=== PATIENT | male | born 1970 | race Caucasian/White ===

== ENCOUNTER 2019-05-01 13:38 | Observation (INO) | payer MEDICAID ==
[~2019-05-01] VITALS: Ht 175.3 cm; Wt 102.3 kg
--- NOTE | 2019-05-01 14:59 | NUR ---
PT MOTHER COMES TO DESK TO REPORT PT WAS RELEASED 2 DAYS AGO FROM REHAB FOR [facility]COHOLISM. MOTHER STATES PT IS "EXTREMELY SUICIDAL". MOTHER FURTHER REPORTS PT TOLD HER HE DOES NOT CARE IF HE LIVES OR DIES. PT ANSWERS SCREENING QUESTIONS ALL NEGATIVE HOWEVER, PT IS DIFFICULT TO KEEP AWAKE DURING TRIAGE. WILL REASK QUESTIONS WHEN PT IS MORE SOBER.
[2019-05-01 15:06] LABS: BASOPHILS 0.3 % (0-2); EOSINOPHILS 0.3 % (0-7); HEMATOCRIT 41.5 % (42.0-54.0); HEMOGLOBIN 15.1 g/dL (13.5-17.5); IMMATURE GRANULOCYTES 0.4 % (0-5); LYMPHOCYTES 32.3 % (15-50); MCH 30.6 pg (26.0-34.0); MCHC 36.4 g/dL (31.0-37.0); MCV 84.2 fL (80.0-100.0); MEAN PLATELET VOLUME 9.2 fL (7.4-10.4); MONOCYTES 4.7 % (2-11); PLATELET COUNT 190 10x3/uL (130-400); RBC 4.93 10x6/uL (4.20-6.10); RDW 13.6 % (11.5-14.5); WBC 7.4 10x3/uL (4.8-10.8)
--- NOTE | 2019-05-01 15:26 | NUR ---
GISSEL COBIAN [phone]. STATES PT MAY BE ELIGIBLE TO GO TO [facility] TO HELP WITH ETOH DETOX. THIS RN UPDATED DR. SAM, RECEIVED VERBAL ORDER TO HAVE PT SCREENED AFTER BLOOD ALCOHOL IS UNDER 100. WILL CONTINUE TO MONITOR.
[2019-05-01 15:34] LABS: ALKALINE PHOSPHATASE 58 U/L (46-116); ALT (SGPT) 45 U/L (10-68); BILIRUBIN - TOTAL 0.46 mg/dL (0.2-1.3); CALC OSMOLALITY 285 mosm/kg (275-300); CALCIUM 8.7 mg/dL (8.5-10.1); CARBON DIOXIDE 28.1 mmol/L (21.0-32.0); CHLORIDE - SERUM 105 mmol/L (98-107); CREATININE - SERUM 0.9 mg/dL (0.6-1.3); GLUCOSE 99 mg/dL (74-106); POTASSIUM - SERUM 3.9 mmol/L (3.5-5.1); PROTEIN - SERUM 7.3 g/dL (6.4-8.2); SODIUM 143 mmol/L (136-145); UREA NITROGEN 15 mg/dL (7-18); eGFR NON AFRICAN AMERICAN > 90 mL/min (90-120)
--- NOTE | 2019-05-01 17:55 | NUR ---
PT IS MORE ALERT AT THIS TIME. STATES WE ARE ABLE TO SPEAK WITH HIS MOTHER ABOUT ALL OF HIS MEDICAL INFORMATION. PT ALSO STATES HE IS SUICIDAL BECAUSE HE IS "SICK OF THIS SHIT I JUST WANT IT TO END". WHEN ASKED IF PATIENT HAS A PLAN PT RESPONDS "HELL YEAH, JUST GET OUT OF MY WAY". THIS RN STATED TO PT THAT SHE DIDN'T UNDERSTAND THE PLAN ET PT STATES HE WILL JUMP OFF OF A BUILDING. PT IS VERY AGGRESSIVE WITH HIS SPEECH. PT CHANGED INTO PAPER GOWN, BELONGINGS SECURED AT NURSING STATION, 1:1 SITTER AT BEDSIDE.
[2019-05-01 18:17] LABS: APPEARANCE CLEAR (CLEAR); COLOR STRAW (YELLOW); GLUCOSE NEGATIVE (NEGATIVE); KETONE NEGATIVE (NEGATIVE); NITRITE NEGATIVE (NEGATIVE); PROTEIN NEGATIVE (NEGATIVE); SPECIFIC GRAVITY 1.015 (1.005-1.020); UROBILINOGEN NORMAL (NORMAL)
[2019-05-01 18:18] LABS: BILIRUBIN NEGATIVE (NEGATIVE)
[2019-05-01 18:23] LABS: UDS - AMPHET NEGATIVE QUAL (NEGATIVE); UDS - BARB NEGATIVE QUAL (NEGATIVE); UDS - BENZO NEGATIVE QUAL (NEGATIVE); UDS - COCAINE NEGATIVE QUAL (NEGATIVE); UDS - OPIATE NEGATIVE QUAL (NEGATIVE); UDS - PCP NEGATIVE QUAL (NEGATIVE); UDS - THC NEGATIVE QUAL (NEGATIVE)
--- NOTE | 2019-05-01 18:45 | NUR ---
PT WILL BE PROVIDED A PSYCH SCREEN WHEN HIS BLOOD ALCOHOL IS UNDER 100.
--- NOTE | 2019-05-01 21:22 | NUR ---
Due to the suicide assessment and conferring with Dr. Hwang, the patient does not require 1:1 observation at this time.
--- NOTE | 2019-05-01 21:45 | NUR ---
PSYCH ASSESSMENT DONE STATES THAT PT DOES NOT NEED SITTER. WEBFOCUS DEVELOPER INFORMED.
[2019-05-01] MEDS ORDERED: COZAAR100 MG PO (22:16)
[2019-05-01 22:26] VITALS: BP 141/91; Ht 175.3 cm; Wt 102.3 kg
--- NOTE | 2019-05-01 22:30 | NUR ---
PT REFUSING TELE AT THIS TIME STATING "I DONT NEED THAT SHIT" PT IS ALSO VERY SEXUALLY INAPPROPRIATE WITH THE NURSING STAFF STATING "DAMN GIRL, YOU HAVE A ROCKING BOOTY" INFORMED PT THAT STATEMENTS SUCH THOSE WILL NOT BE TOLERATED AND ARE NOT APPROPRIATE. PT VERBALIZES UNDERSTANDING.
[2019-05-02 04:00] VITALS: BP 119/86
--- NOTE | 2019-05-02 04:36 | NUR ---
I have reviewed this patient and I concur with the Shift Assessment completed by the Licensed Practical Nurse today this shift.
[2019-05-02 05:16] LABS: BASOPHILS 0.3 % (0-2); EOSINOPHILS 0.4 % (0-7); HEMATOCRIT 40.5 % (42.0-54.0); HEMOGLOBIN 14.6 g/dL (13.5-17.5); IMMATURE GRANULOCYTES 0.3 % (0-5); LYMPHOCYTES 21.7 % (15-50); MCV 83.3 fL (80.0-100.0); MEAN PLATELET VOLUME 9.6 fL (7.4-10.4); MONOCYTES 7.6 % (2-11); NEUTROPHILS 69.7 % (40-80); PLATELET COUNT 213 10x3/uL (130-400); RBC 4.86 10x6/uL (4.20-6.10); RDW 13.1 % (11.5-14.5)
[2019-05-02 05:23] LABS: WBC 10.5 10x3/uL (4.8-10.8)
[2019-05-02 05:28] LABS: ALBUMIN 3.7 g/dL (3.4-5.0); ALKALINE PHOSPHATASE 55 U/L (46-116); ALT (SGPT) 40 U/L (10-68); BILIRUBIN - TOTAL 0.74 mg/dL (0.2-1.3); CALC OSMOLALITY 276 mosm/kg (275-300); CALCIUM 8.2 mg/dL (8.5-10.1); CARBON DIOXIDE 25.8 mmol/L (21.0-32.0); CHLORIDE - SERUM 102 mmol/L (98-107); CREATININE - SERUM 0.9 mg/dL (0.6-1.3); GLUCOSE 87 mg/dL (74-106); POTASSIUM - SERUM 3.8 mmol/L (3.5-5.1); PROTEIN - SERUM 6.8 g/dL (6.4-8.2); SODIUM 138 mmol/L (136-145); UREA NITROGEN 18 mg/dL (7-18); eGFR NON AFRICAN AMERICAN > 90 mL/min (90-120)
--- NOTE | 2019-05-02 07:17 | NUR ---
INITIAL ROUNDING, WHITE BOARD UPDATED. PATIENT IS AWAKE, SUPINE IN BED, LIGHTS AND TV OFF. REPORTS PAIN, GENERALIZED ACHES OF 5/10. PATIENT APPEARS/SOUNDS "DOWN/DEPRESSED", SOFT SPOKEN, UNSURE OF WHAT HE NEEDS, WANTS OR PLANS FOR TODAY. WILL CONT TO MONITOR
[2019-05-02 08:34] VITALS: BP 157/95
--- NOTE | 2019-05-02 10:19 | MORECARE ---
CASE MANAGEMENT DISCHARGE SUMMARY PATIENT: MARISABEL JOVEL UNIT: [id number] ADM DATE: 05/01/19 AGE: 49 : 70 SEX: M ROOM/BED: D.2138 AUTHOR: RODOLFO OZUNA PHYSICIAN: REFERRING PHYSICIAN: CLARISSA WAN MD DATE OF SERVICE: 05/02/19 Discharge Plan Patient Name: MARISABEL JOVEL Facility: [facility]:[place] : 1970 Planned Disposition: Home Anticipated Discharge Date: Discharge Date: Expected LOS: Initial Reviewer: [email or web address] Initial Review Date: 05/02/2019 Generated: 05/02/19 11:19 am Comments DCP- Discharge Planning Updated by [id number]: Eloisa Smart on 05/02/19 9:[address] Patient Name: MARISABEL JOVEL Admission Status: ER Accout number: [id number] Admission Date: 05-01-2019 : 1970 Admission Diagnosis: Attending: CLARISSA CARDENAS Current LOS: 1 Anticipated DC Date: Planned Disposition: Home Primary Insurance: UNINSURED DISCOUNT PLAN Discharge Planning Comments: SPOKE TO PT ABOUT DC NEEDS. PT STATED HE LIVES INDEPENDENTLY AND WILL DC HOME AT DC. PT STATES HE FEELS LIKE THIS IS A SAFE DC. HE STATES HE JUST GOT OUT OF [facility] IN [place] AND SLIPPED BACK AND DRANK BUT DOES NOT WANT TO GO INPATIENT AGAIN AT THIS TIME. CM WILL CONTINUE TO FOLLOW Resident Care Director: Eloisa Smart Patient Name: MARISABEL JOVEL Page [phone] at 1019 All edits/amendments must be made on the electronic document DICTATION DATE: 05/02/19 1018 CARD FOLDER: CASEY 05/02/19 1018 RPT#: [id number] DC DATE: STATUS: ADM IN [facility] [address] [place] [address] END OF REPORT
[2019-05-02] MEDS ORDERED: Nicoderm [PBKC] TRANSDERM (10:23)
--- NOTE | 2019-05-02 10:52 | MORECARE ---
CASE MANAGEMENT DISCHARGE SUMMARY PATIENT: MARISABEL JOVEL UNIT: [id number] ADM DATE: 05/01/19 AGE: 49 : 70 SEX: M ROOM/BED: D.2138 AUTHOR: RODOLFO OZUNA PHYSICIAN: REFERRING PHYSICIAN: CLARISSA WAN MD DATE OF SERVICE: 05/02/19 Discharge Plan Patient Name: MARISABEL JOVEL Facility: [facility]:[place] : 1970 Planned Disposition: Home Anticipated Discharge Date: Discharge Date: Expected LOS: Initial Reviewer: [email or web address] Initial Review Date: 05/02/2019 Generated: 05/02/19 11:52 am Comments DCP- Discharge Planning Updated by [email or web address]: Eloisa Smart on 05/02/19 9:[address] Patient Name: MARISABEL JOVEL Admission Status: ER Accout number: [id number] Admission Date: 05-01-2019 : 1970 Admission Diagnosis: Attending: CLARISSA CARDENAS Current LOS: 1 Anticipated DC Date: Planned Disposition: Home Primary Insurance: UNINSURED DISCOUNT PLAN Discharge Planning Comments: SPOKE TO PT ABOUT DC NEEDS. PT STATED HE LIVES INDEPENDENTLY AND WILL DC HOME AT DC. PT STATES HE FEELS LIKE THIS IS A SAFE DC. HE STATES HE JUST GOT OUT OF [facility] IN [place] AND SLIPPED BACK AND DRANK BUT DOES NOT WANT TO GO INPATIENT AGAIN AT THIS TIME. CM WILL CONTINUE TO FOLLOW Lead Programmer: Eloisa Smart DCPIA - Discharge Planning Initial Assessment Updated by [id number]: Eloisa Smart on 05/02/19 10:48 am * Is the patient Alert and Oriented? Yes * How many steps to enter\exit or inside your home? * PCP [facility] * [facility] [place] * Preadmission Environment Home with Family * ADLs Independent * List name and contact numbers for known caregivers / representatives who currently or will assist patient after discharge: MOTHER * Verbal permission to speak to the caregivers and representatives has been obtained from the patient. Yes * Additional services required to return to the preadmission environment? No * Can the patient safely return to the preadmission environment? Yes * Has this patient been hospitalized within the prior 30 days at any hospital? No Last DP export: 05/02/19 9:19 a Patient Name: MARISABEL JOVEL Page [phone] at 1052 All edits/amendments must be made on the electronic document DICTATION DATE: 05/02/19 105 ARTIST COLOR SEPARATION: CASEY 05/02/19 105 RPT#: [id number] DC DATE: STATUS: ADM IN [facility] [address] [place] [address] END OF REPORT
--- NOTE | 2019-05-02 11:20 | NUR ---
THE PATIENT CAME INTO THE HALLWAY, DRESSED AND READY TO GO HOME. HE WAS REQUESTING HIS IV BE REMOVED. THE PATIENTS MOTHER GAGE COBIAN IS HERE AND IS UPSET BECAUSE THE PATIENT IS BEING DISCHARGED, DEMANDING HE BE HERE FOR 72 HOURS "SO HE CAN GO TO THE HALF WAY HOUSE SATURDAY". THE PATIENT REMOVED THE TAPE HOLDING THE IV, THIS NURSE REMOVED THE IV, CATH TIP IN TACT, COVERED THE SITE WITH DRSG, ALL THE WHILE THE MOTHER IS SAYING "OZZY LIES, HE IS NOT OK AND IS HOMELESS AND NEEDS TO STAY HERE" THE PATIENT REMAINED QUIET. THE MOTHER ASKED THAT A COPY OF HIS LABS BE GIVEN TO THE PATIENT AND THAT THIS NURSE CALL AND SPEAK TO THE DOCTOR ABOUT KEEPING THE PATIENT. A COPY OF THE PATIENTS VISIT SUMMARY WHICH INCLUDED LABS WAS GIVEN TO THE PATIENT WELL THE DISCHARGE PAPERS. IT WAS EXPLAINED TO THE MOTHER IN FRONT OF THE PATIENT THAT THE PATIENT TOLD MYSELF, THE DEMONSTRATOR SALES, WELL THE BOAT LOADER HELPER, CLAUS THAT HE DID NOT WANT TO GO TO REHAB OR ANY OTHER FACILITY, I JUST WANT TO GO HOME. I JUST GOT OUT OF A REHAB PLACE AND THEY HAVE A GOOD PROGRAM, I WILL FOLLOW UP WITH THEM ON MY OWN" THIS WAS ALL REPORTED TO THE BOAT LOADER HELPER BEFORE SHE SAW THE PATIENT 1130 THIS NURSE CALLED ([phone]) AND SPOKE TO CLAUS UPDATING HER ON THE PATIENTS MOTHERS CONCERNS AND THE REQUEST THE DOCTOR CALL [facility] TO MAKE A REFERRAL. THE PHONE NUMBER TO THE PATIENTS MOTHER WAS GIVEN TO THE BOAT LOADER HELPER.
--- NOTE | 2019-05-04 10:12 | MORECARE ---
CASE MANAGEMENT DISCHARGE SUMMARY PATIENT: MARISABEL JOVEL UNIT: [id number] ADM DATE: 05/01/19 AGE: 49 : 70 SEX: M ROOM/BED: D.8378 AUTHOR: LAITHDOC PHYSICIAN: REFERRING PHYSICIAN: CLARISSA WAN MD DATE OF SERVICE: 05/04/19 Discharge Plan Patient Name: MARISABEL JOVEL Facility: [facility]:[place] : 1970 Planned Disposition: Home Anticipated Discharge Date: 05/02/19 Discharge Date: 05/02/2019 Expected LOS: 1 Initial Reviewer: [email or web address] Initial Review Date: 05/02/2019 Generated: 05/04/19 11:11 am Comments DCP- Discharge Planning Updated by [id number]: Eloisa Smart on 05/02/19 9:[address] Patient Name: MARISABEL JOVEL Admission Status: ER Accout number: [id number] Admission Date: 05-01-2019 : 1970 Admission Diagnosis: Attending: CLARISSA CARDENAS Current LOS: 1 Anticipated DC Date: Planned Disposition: Home Primary Insurance: UNINSURED DISCOUNT PLAN Discharge Planning Comments: SPOKE TO PT ABOUT DC NEEDS. PT STATED HE LIVES INDEPENDENTLY AND WILL DC HOME AT DC. PT STATES HE FEELS LIKE THIS IS A SAFE DC. HE STATES HE JUST GOT OUT OF [facility] IN [place] AND SLIPPED BACK AND DRANK BUT DOES NOT WANT TO GO INPATIENT AGAIN AT THIS TIME. CM WILL CONTINUE TO FOLLOW Materials Mgmt Tech: Eloisa Smart DCPIA - Discharge Planning Initial Assessment Updated by [email or web address]: Eloisa Smart on 05/02/19 10:48 am * Is the patient Alert and Oriented? Yes * How many steps to enter\exit or inside your home? * PCP [facility] * [facility] IN [place] * Preadmission Environment Home with Family * ADLs Independent * List name and contact numbers for known caregivers / representatives who currently or will assist patient after discharge: MOTHER * Verbal permission to speak to the caregivers and representatives has been obtained from the patient. Yes * Additional services required to return to the preadmission environment? No * Can the patient safely return to the preadmission environment? Yes * Has this patient been hospitalized within the prior 30 days at any hospital? No Last DP export: 05/02/19 9:52 a Patient Name: MARISABEL JOVEL Page [phone] at 1012 All edits/amendments must be made on the electronic document DICTATION DATE: 05/04/19 1011 BLUEPRINT CLERK: CASEY 05/04/19 1011 RPT#: [id number] DC DATE:05/02/19 STATUS: DIS IN [facility] [address] [place] [address] END OF REPORT
== END 2019-05-02 11:25 | disposition home or self-care (01) ==
LOC: D.ER 13:38 → D.M2 20:45 → OBSVTIME 20:46 → D.M2 05-02 11:25
PROVIDERS: Family Medicine; ADMIT Family Medicine; ATTEND Family Medicine
DX: F10.129 Alcohol abuse with intoxication, unspecified (principal); Y90.8 Blood alcohol level of 240 mg/100 ml or more; I10 Essential (primary) hypertension; E86.0 Dehydration; F32.9 Major depressive disorder, single episode, unspecified; D64.9 Anemia, unspecified; F17.213 Nicotine dependence, cigarettes, with withdrawal; G89.29 Other chronic pain; M54.9 Dorsalgia, unspecified